=== PATIENT | male | born 1980 | race Caucasian/White ===

== ENCOUNTER 2018-01-14 18:34 | Emergency (ER) | payer OTHER ==
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
[2018-01-14] MEDS ORDERED: LET GEL TOPICAL 1 EA SYR TP ONE ×2 (19:24→19:30)
[2018-01-14] MEDS ORDERED: HYDROCOD/APAP 5/325 PREPACK#6 BTL TAKEHOME ONE (20:15)
[2018-01-14 20:49] VITALS: BP 118/69
== END 2018-01-14 20:38 | disposition home or self-care (01) ==
DX: S43.101A Unspecified dislocation of right acromioclavicular joint, initial encounter (principal); S22.31XA Fracture of one rib, right side, initial encounter for closed fracture; S40.211A Abrasion of right shoulder, initial encounter; S70.211A Abrasion, right hip, initial encounter; V18.2XXA Unspecified pedal cyclist injured in noncollision transport accident in nontraffic accident, initial encounter

== ENCOUNTER → 2018-02-22 | Outpatient (CLI) | payer OTHER | LOC: BMCIMAGING 08:42 | PROVIDERS: ATTEND Orthopaedic Surgery Hand Surgery | DX: M25.561 Pain in right knee (principal) ==